=== PATIENT | male | born 1955 | race African-American/Black ===

== ENCOUNTER 2019-06-16 06:46 | Day surgery (SDC) | payer MEDICARE, MEDICAID ==
[~2019-06-16] VITALS: Ht 172.7 cm; Wt 81.6 kg
[2019-06-16] MEDS ORDERED: LACTATED RINGERS 1,000 ML IV SCH (07:12)
[2019-06-16] MEDS ORDERED: LIDOCAINE HCL 2%/EPINEPHRINE 1:100,000 20 ML VIAL INFIL ONE (09:00)
[2019-06-16] MEDS ORDERED: BALANCED SALT IRRIG SOLN 15ML ONE (09:00)
[2019-06-16] MEDS ORDERED: TETRACAINE 0.5% OPHTH DROPS 4ML ONE (09:00)
[2019-06-16] MEDS ORDERED: PREDNISOLONE ACETATE 1% OPHTH DROPS 5ML ONE (09:00)
[2019-06-16] MEDS ORDERED: BUPIVACAINE HCL/PF 0.75% (7.5MG/ML) 10ML ONE (09:00)
[2019-06-16] MEDS ORDERED: CIPROFLOXACIN 0.3% OPHTH SOLN 2.5ML ONE (09:00)
[2019-06-16] MEDS ORDERED: TRIAMCINOLONE ACETONIDE 40MG/ML 1ML VIAL ONE (09:16)
[2019-06-16] MEDS ORDERED: PROPOFOL 200MG/20ML VIAL IV ONE (09:37)
[2019-06-16] MEDS ORDERED: LIDOCAINE HCL/PF 1% 10 MG/ML 5ML VIAL ONE (09:37)
[2019-06-16] MEDS ORDERED: MIDAZOLAM HCL 2 MG/2 ML VIAL ONE (09:37)
[2019-06-16] MEDS ORDERED: FENTANYL CITRATE/PF 50MCG/ML 2ML VIAL ONE (09:37)
[2019-06-16] MEDS ORDERED: KETOROLAC 30MG/ML VIAL IV ONE (10:30)
[2019-06-16] MEDS ORDERED: ONDANSETRON HCL 4MG/2ML INJ IV PRN (10:30)
== END 2019-06-16 11:05 | disposition home or self-care (01) ==
LOC: OR 06:46
PROVIDERS: ATTEND Ophthalmology
DX: H11.002 Unspecified pterygium of left eye (principal); I10 Essential (primary) hypertension; E78.2 Mixed hyperlipidemia; J44.9 Chronic obstructive pulmonary disease, unspecified; M10.9 Gout, unspecified; C61 Malignant neoplasm of prostate; F11.20 Opioid dependence, uncomplicated; F12.90 Cannabis use, unspecified, uncomplicated; M19.029 Primary osteoarthritis, unspecified elbow; M19.019 Primary osteoarthritis, unspecified shoulder; Z96.653 Presence of artificial knee joint, bilateral; Z96.643 Presence of artificial hip joint, bilateral; Z79.899 Other long term (current) drug therapy
CPT/HCPCS: 65426; J2250; J2704; J3010; J3490; J3301